=== PATIENT | male | born 1965 | race Caucasian/White ===

== ENCOUNTER 2019-10-13 08:00 | Inpatient (IN) | payer OTHER ==
[2019-10-07 10:37] VITALS: BMI 31.3
[~2019-10-13 08:00] MED LIST: CEFAZOLIN 2 GM in DEXTROSE 5%-WATER - 50 ML IVPB ONE; CELECOXIB 200 MG CAPSULE PO ONE; GABAPENTIN 300 MG CAPSULE PO ONE; PANTOPRAZOLE 40 MG TABLET PO ONE; TRANEXAMIC ACID 1000 MG/10 ML VIAL IVPUSH ONE; oxyCODONE HCL 10 MG SUSTAINED ACTING TABLET PO ONE
[2019-11-06] MEDS ORDERED: CELECOXIB 200 MG CAPSULE PO ONE (06:06)
[2019-11-06] MEDS ORDERED: oxyCODONE HCL 10 MG SUSTAINED ACTING TABLET PO ONE (06:06)
[2019-11-06] MEDS ORDERED: MIDAZOLAM HCL 2 MG/2 ML SINGLE DOSE VIAL ONE ×3 (06:40→09:22)
[2019-11-06] MEDS ORDERED: BUPIVACAINE LIPOSOME/PF (EXPAREL) 266 MG/20 ML VIAL ONE (06:40)
[2019-11-06] MEDS ORDERED: SODIUM CHLORIDE 0.9% P/F 10 ML VIAL IJ ONE (06:41)
[2019-11-06] MEDS ORDERED: VANCOMYCIN 1,000 MG VIAL (RESTRICTED TO ID ONLY) ONE (07:09)
[2019-11-06] MEDS ORDERED: ceFAZolin SODIUM 1 GM VIAL ONE ×2 (07:09→10:51)
--- NOTE | 2019-11-06 07:56 | HP ---
Admitting History and Physical - Admission Chief Complaint: Left knee osteoarthritis x years History of Present Illness: 54 year old male presents in regard to their left knee. Long-standing history of left knee osteoarthritis. Patient complains of pain, limited range of motion, difficulty ambulating, and difficulty with activities of daily living. Patient has failed conservative treatment options including PO medications, activity modification, injections, and exercise programs. Radiographs revealed severe osteoarthritis of the left knee joint. As patient has failed all conservative treatment measures, the patient chose to proceed with surgical intervention, left total knee arthroplasty MAKOplasty. History Source: Patient - Past Medical History Musculoskeletal: Yes: Osteoarthritis - Past Surgical History Additional Past Surgical History: See written history & physical. - Smoking History Smoking history: Former smoker Have you smoked in the past 12 months: No If you are a former smoker, when did you quit?: 25 YEARS AGO Home Medications - Allergies Allergies/Adverse Reactions: Allergies Allergy/AdvReac Type Severity Reaction Status Date / Time clindamycin Allergy Severe Hives Verified 10/22/19 11:26 - Home Medications Home Medications: Ambulatory Orders NK [No Known Home Medication] 10/07/19 Review of Systems - Review of Systems Musculoskeletal: reports: Crepitus (left knee), Decreased ROM (left knee), Joint Pain (left knee), Joint Swelling (left knee) Physical Examination Vital Signs: Vital Signs Temperature 98.1 F 11/06/19 06:38 Pulse Rate 70 11/06/19 06:38 Respiratory Rate 18 11/06/19 06:38 Blood Pressure 130/90 11/06/19 06:38 O2 Sat by Pulse Oximetry (%) 99 11/06/19 06:38 Constitutional: Yes: Well Nourished, No Distress Eyes: Yes: Conjunctiva Clear HENT: Yes: Atraumatic Neck: Yes: Supple Cardiovascular: Yes: Regular Rate and Rhythm Respiratory: Yes: Regular Gastrointestinal: Yes: Soft ...Rectal Exam: Yes: Deferred Musculoskeletal: Yes: Joint Stiffness (left knee), Joint Swelling (left knee), Other (Limited ROM) Assessment/Plan 54 year old male presents in regard to their left knee. Long-standing history of left knee osteoarthritis. Patient complains of pain, limited range of motion, difficulty ambulating, and difficulty with activities of daily living. Patient has failed conservative treatment options including PO medications, activity modification, injections, and exercise programs. Radiographs revealed severe osteoarthritis of the left knee joint. As patient has failed all conservative treatment measures, the patient chose to proceed with surgical intervention, left total knee arthroplasty MAKOplasty. Pros, cons, risks, benefits, and alternatives of a left total knee arthroplasty MAKOplasty were discussed with the patient at length. Patient confirms their understanding and consents to proceed with a left total knee arthroplasty MAKOplasty.
[2019-11-06] MEDS ORDERED: TRANEXAMIC ACID 1000 MG/10 ML VIAL IVPUSH ONE ×2 (08:00→10:33)
[2019-11-06] MEDS ORDERED: CEFAZOLIN 2 GM in DEXTROSE 5%-WATER - 50 ML IVPB ONE (08:00)
[2019-11-06] MEDS ORDERED: SUCCINYLCHOLINE CHLORIDE 200 MG/10 ML SYRINGE ONE (08:19)
[2019-11-06] MEDS ORDERED: PROPOFOL 20 ML ONE ×3 (08:19)
[2019-11-06] MEDS ORDERED: EPHEDRINE SULFATE/0.9% NACL/PF 50 MG/10 ML SYRINGE NR ONE (08:33)
[2019-11-06] MEDS ORDERED: BUPIVICAINE 0.25%/MORPH PF/KETOROLAC - 51ML DISP.SYRINGE IA ONE ×2 (09:30→10:54)
[2019-11-06] MEDS ORDERED: TRANEXAMIC ACID 1000 MG/10 ML VIAL ONE ×2 (10:24→10:50)
[2019-11-06] MEDS ORDERED: VANCOMYCIN 1,000 MG VIAL (RESTRICTED TO ID ONLY) IVPB ONE (10:34)
[2019-11-06] MEDS ORDERED: ONDANSETRON 4 MG/2 ML VIAL ONE (10:51)
[2019-11-06] MEDS ORDERED: KETOROLAC TROMETHAMINE 30 MG/1 ML VIAL ONE (10:51)
[2019-11-06] MEDS ORDERED: DEXAMETHASONE SOD PHOSPHATE 4 MG/1 ML VIAL ONE (10:51)
[2019-11-06] MEDS ORDERED: oxyCODONE HCL 5 MG TABLET PO PRN (11:27)
[2019-11-06] MEDS ORDERED: traMADol HCL 50 MG TABLET ONE (11:35)
[2019-11-06] MEDS ORDERED: ACETAMINOPHEN INJECTION 100 ML IVPB ONE (11:35)
[2019-11-06] MEDS ORDERED: ACETAMINOPHEN 1000 MG/100 ML VIAL (NON FORMULARY) IVPB ONE (11:42)
[2019-11-06] MEDS ORDERED: ONDANSETRON 4 MG/2 ML VIAL IVPUSH PRN (11:50)
[2019-11-06] MEDS ORDERED: MAG HYDROX/AL HYDROX/SIMETH 30 ML UNIT-DOSE CUP PO PRN (11:50)
[2019-11-06] MEDS ORDERED: MAGNESIUM HYDROX 2400MG/30ML ORAL SUSPENSION 30 ML CUP PO PRN (11:50)
[2019-11-06] MEDS: traMADol HCL 50 MG TABLET PO SCH ×3 (11:57→23:26)
--- NOTE | 2019-11-06 11:59 | OP ---
Operative Note - Note: Operative Date: 11/06/19 Pre-Operative Diagnosis: Left knee OA Operation: Left CASEY TKA Post-Operative Diagnosis: Same as Pre-op Surgeon: Randolph Jj Touch Up Painter: Charlene Yepez Anesthesia: Spinal Estimated Blood Loss (mls): 150
[2019-11-06] MEDS ORDERED: LACTATED RINGERS SOLUTION 1,000 ML IV SCH (12:00)
--- NOTE | 2019-11-06 15:36 | SPEC ---
DATE OF OPERATION: 11/06/2019 PREOPERATIVE DIAGNOSIS: Left knee osteoarthritis. POSTOPERATIVE DIAGNOSIS: Left knee osteoarthritis. PROCEDURE: Left total knee replacement with MAKOplasty robotic navigation. ATTENDING: Liz Donahue MD FORM PRESS OPERATOR: WILBERT Manuel ANESTHESIA: Spinal plus sedation. ESTIMATED BLOOD LOSS: 150 mL COMPLICATIONS: None. DISPOSITION: The patient was transferred to the PACU in stable condition. IMPLANTS USED: [place] Triathlon size 5 femoral and tibial cementless component; 32-mm patellar component; 9-mm polyethylene component. INDICATIONS: This is a 54-year-old male who presented to the office complaining of left knee pain. He is a longstanding patient of the practice and was initially seen after a workplace injury which resulted in arthroscopic surgery in his left knee. Over the years he went on to develop arthritis of the knee. He was seen and examined by Dr. Donahue and radiographs revealed grade 4 osteoarthritis of the knee. The patient was treated conservatively with injections, medications, and physical therapy, but continued to have severe pain and ambulatory dysfunction. He was therefore indicated for a left total knee replacement. The risks, benefits and alternatives to the procedure were explained to the patient in great detail and he elected to proceed with the surgery. DESCRIPTION OF THE PROCEDURE: On the day of surgery, the patient was taken to the operating room and placed on the OR table. Spinal anesthesia was administered by the anesthesiologist. The patient was then positioned supine on the table and all bony prominences were padded. The knee was then prepped and draped in the usual sterile fashion and intravenous antibiotics were given for infection prophylaxis. A surgical time-out was then performed with the team, and the patients identity, procedure, side, availability of implants, and the administration of antibiotics was confirmed. With the knee flexed, a midline incision was made and carried down through the subcutaneous fat to the underlying retinaculum. A medial parapatellar arthrotomy was performed. This was followed by a subperiosteal dissection of the tissue off the proximal, medial tibia. A portion of fat pad was removed from under the patellar tendon, and a small portion of fat was excised off the distal supracondylar femur. Electrocautery and an [employer] bipolar sealing device were used to achieve hemostasis. The knee was then flexed further and the anterior horn of the lateral meniscus was released from the midline. Next, the anterior and posterior cruciate ligaments were transected. Grade 4 changes were noted diffusely throughout the knee. Femoral and tibial checkpoints were then placed in the appropriate location using a mallet. Two parallel bicortical self-drilling pins were placed in the tibial diaphysis after making stab incisions and bluntly dissecting down to bone. Two pins were then placed in the distal supracondylar femur. The [employer] navigation arrays were then attached to both the femoral and tibial pins and the lower extremity was then registered to the robotic navigation device using various joint movements, as well as inputting several dozen reference points. The knee was then taken through a full range of motion with a corrective force applied. Alignment in varus/valgus as well as flexion/extension and soft tissue balance was measured in various positions. The navigation device showed a numerical and graphic representation of the soft tissue balance. The components were repositioned virtually using the software until optimal soft tissue balance was achieved on screen. Once this was accomplished, the final plan was saved and sent to the robot. Self-retaining retractors were then placed at the joint line for exposure and protection of the collateral ligaments. The robot was brought into the sterile field and registered with the navigation device. The robotic arm with attached oscillating saw blade was then used to perform femoral and tibial bone cuts as per the saved software plan. The femoral box cut was made using the appropriately sized manual cutting guide. The knee was then irrigated. Trial components were placed and the knee was taken through a full range of motion to assess soft tissue balance and alignment. The range of motion was found to be excellent and the soft tissue balance was optimal and according to plan. The knee was then put into extension and the patella everted. The synovium around the patella was circumscribed with electrocautery. A caliper was used to measure the patellar thickness and a saw was then used to resect the patella at the chondro-osseous junction. The cut surface was then sized and drilled for the appropriate patellar button, with care taken to medialize it. A trial patella was then placed and the knee was again taken through a full range of motion. The knee was found to have both good balance and good patellar tracking. All of the components were removed except the tibial base plate. The appropriate instrumentation was used to drill and punch the proximal tibia for the keel of the final component. All bony surfaces were then cleaned with pulsatile lavage and dried. Cementless [employer] Triathlon knee replacement components were then impacted in place and found to have a stable press-fit. A trial polyethylene component was placed and the knee was again taken through a full range of motion to assess stability, balance, and patellar tracking. This was found to be optimal and the trial polyethylene was exchanged for the appropriately sized real implant. The wound was then thoroughly irrigated with normal saline. A 3-minute dilute Betadine lavage was performed. The knee was again irrigated using a pulsatile lavage device. A periarticular injection was used to locally infiltrate the capsular tissues surrounding the implant and prosthesis. Then No. 1 Polysorb and 0 VLoc 180 barbed sutures were used to close the arthrotomy. Then No. 1 Polysorb and 2-0 VLoc 90 sutures were used in the subcutaneous tissues. Then 4-0 undyed Vicryl and Dermabond skin adhesive was used to close the stab incisions made for the navigation pins. The skin was closed using both 3-0 VLoc 90 suture in a running subcuticular fashion and Dermabond skin adhesive. Once this was completed a sterile Aquacel dressing and compressive Michael-wrap was applied. The patient was then awakened and taken to the PACU in stable condition. LIZ DONAHUE M.D. [id number]
[2019-11-06] MEDS: ACETAMINOPHEN 325 MG TABLET (FP) PO SCH ×2 (17:06→23:26)
[2019-11-06] MEDS: CEFAZOLIN 2 GM/D5W 2 GM/50 ML ML IVPB SCH (17:10)
[2019-11-06] MEDS: KETOROLAC TROMETHAMINE 30 MG/1 ML VIAL IVPUSH SCH ×2 (17:10→23:25)
[2019-11-06] MEDS: oxyCODONE HCL 5 MG TABLET PO PRN (18:21)
[2019-11-06] MEDS ORDERED: DEXAMETHASONE SOD PHOSPHATE 10 MG/1 ML VIAL IVPB ONE (20:00)
[2019-11-06] MEDS: CELECOXIB 200 MG CAPSULE PO SCH (21:38)
[2019-11-06] MEDS: oxyCODONE HCL 10 MG SUSTAINED ACTING TABLET PO SCH (21:38)
[2019-11-06] MEDS: ASCORBIC ACID 500 MG TABLET (FP) PO SCH (21:39)
[2019-11-06] MEDS: SENNOSIDES/DOCUSATE COMBO (SENNA PLUS) TABLET (UD) PO SCH (21:39)
[2019-11-06] MEDS: GABAPENTIN 300 MG CAPSULE PO SCH (21:39)
[2019-11-07] MEDS: CEFAZOLIN 2 GM/D5W 2 GM/50 ML ML IVPB SCH (01:13)
[2019-11-07] MEDS: KETOROLAC TROMETHAMINE 30 MG/1 ML VIAL IVPUSH SCH ×2 (05:50→12:00)
[2019-11-07] MEDS: ACETAMINOPHEN 325 MG TABLET (FP) PO SCH ×4 (05:50→23:22)
[2019-11-07] MEDS: traMADol HCL 50 MG TABLET PO SCH ×4 (05:51→23:23)
[2019-11-07 08:10] LABS: CALCIUM 8.6 mg/dl (8.5-10); CREATININE 0.9 mg/dl (0.55-1.3); HEMATOCRIT 37.4 % (35.4-49); HEMOGLOBIN 12.3 GM/dl (11.7-16.9); MCH 31.3 pg (25.7-33.7); MCHC 32.9 g/dl (32.0-35.9); MEAN PLT VOLUME 9.6 fl (7.5-11.1); PLATELET COUNT 186 K/MM3 (134-434); POTASSIUM 5.2 mmol/L (3.5-5.1); RBC 3.94 M/mm3 (4.00-5.60); RDW 11.8 % (11.9-15.9); WHITE BLOOD COUNT 12.6 K/mm3 (4.0-10.8)
[2019-11-07] MEDS: ASPIRIN 325 MG TABLET PO SCH (08:57)
[2019-11-07] MEDS: oxyCODONE HCL 10 MG SUSTAINED ACTING TABLET PO SCH ×2 (09:01→21:11)
[2019-11-07] MEDS: PANTOPRAZOLE 40 MG TABLET PO SCH (09:01)
[2019-11-07] MEDS: CELECOXIB 200 MG CAPSULE PO SCH ×2 (09:01→21:11)
[2019-11-07] MEDS: SENNOSIDES/DOCUSATE COMBO (SENNA PLUS) TABLET (UD) PO SCH ×2 (09:01→21:11)
[2019-11-07] MEDS: GABAPENTIN 300 MG CAPSULE PO SCH ×2 (09:01→21:11)
[2019-11-07] MEDS: MULTIVITAMINS (DAILY MVI) TABLET (FP) PO SCH (09:01)
[2019-11-07] MEDS: ASCORBIC ACID 500 MG TABLET (FP) PO SCH ×2 (09:01→21:11)
--- NOTE | 2019-11-07 13:07 | PN ---
Progress Note (short form) - Note Progress Note: S: Pt sitting in a chair without complaints O: VAS 3/10 A/P: POD #1 s/p left total knee replacement 1. Pain well controlled. Continue meds as ordered
[2019-11-07] MEDS: oxyCODONE HCL 5 MG TABLET PO PRN (16:37)
--- NOTE | 2019-11-07 23:28 | PN ---
Progress Note (short form) - Note Progress Note: Pt seen and examined. Doing well. AVSS Selected Entries 11/07/19 11/07/19 19:21 22:45 Temperature 97.8 F 97.5 F L Pulse Rate 60 Blood Pressure 124/66 109/67 O2 Sat by Pulse 98 96 Oximetry (%) Laboratory Tests 11/07/19 11/07/19 07:09 07:09 WBC 12.6 H Hgb 12.3 Hct 37.4 Plt Count 186 Sodium 135 L Potassium 5.2 H Chloride 101 Carbon Dioxide 28 Anion Gap 6 L BUN 14.0 Creatinine 0.9 Est GFR (CKD-EPI)AfAm 111.05 Est GFR (CKD-EPI)NonAf 95.81 Random Glucose 164 H Calcium 8.6 Gen: NAD LLE: c/d/i, NVID A/P POD#1 s/p L CASEY TKA PT/OOB D/C home in AM
[2019-11-08] MEDS: ACETAMINOPHEN 325 MG TABLET (FP) PO SCH ×2 (06:38→12:00)
[2019-11-08] MEDS: traMADol HCL 50 MG TABLET PO SCH ×2 (06:38→15:52)
[2019-11-08 06:54] VITALS: BP 114/61; PULSE 58; TEMP 97.8
[2019-11-08 08:14] LABS: HEMOGLOBIN 11.5 GM/dl (11.7-16.9); MCH 30.9 pg (25.7-33.7); MCHC 32.8 g/dl (32.0-35.9); MEAN CELL VOLUME 94.2 fl (80-96); MEAN PLT VOLUME 9.4 fl (7.5-11.1); PLATELET COUNT 174 K/MM3 (134-434); RBC 3.72 M/mm3 (4.00-5.60); WHITE BLOOD COUNT 8.4 K/mm3 (4.0-10.8)
[2019-11-08] MEDS: ASPIRIN 325 MG TABLET PO SCH (09:22)
[2019-11-08] MEDS: oxyCODONE HCL 10 MG SUSTAINED ACTING TABLET PO SCH (09:22)
[2019-11-08] MEDS: GABAPENTIN 300 MG CAPSULE PO SCH (09:22)
[2019-11-08] MEDS: CELECOXIB 200 MG CAPSULE PO SCH (09:22)
[2019-11-08] MEDS: PANTOPRAZOLE 40 MG TABLET PO SCH (09:23)
[2019-11-08] MEDS: ASCORBIC ACID 500 MG TABLET (FP) PO SCH (09:23)
[2019-11-08] MEDS: SENNOSIDES/DOCUSATE COMBO (SENNA PLUS) TABLET (UD) PO SCH (09:23)
[2019-11-08] MEDS: MULTIVITAMINS (DAILY MVI) TABLET (FP) PO SCH (09:23)
--- NOTE | 2019-11-11 15:16 | PATH ---
Surgical Pathology Report Patient Name: PRANAY HER Med. Rec. #: [id number] /Age/Gender: 1965 (Age: 54) / M Account: [id number] Location: [facility] MED-SURG Taken: 11/06/2019 Received: 11/06/2019 Reported: 11/11/2019 Physicians: Randolph Jj M.D. Specimen(s) Received LEFT KNEE BONES Clinical History Left knee osteoarthritis Final Diagnosis LEFT KNEE BONES, RESECTION: DEGENERATIVE JOINT DISEASE, LEFT KNEE. Electronically Signed Kalin Scott M.D. Gross Description Received in formalin labeled "left knee bones," is an 11.5 x 9.0 x 2.0 cm aggregate of multiple jin-brown, irregular portions of bone and soft tissue. The tibial plateau measures 7.5 x 5.8 x 1.5 cm. There is a 1.3 cm greatest dimension area of eburnation present. The remaining articular surfaces are jin-yellow and focally granular. The underlying trabecular bone is yellow and hard. The [employer] sections are submitted in one cassette, following decalcification. 11/07/[address] [facility]
== END 2019-11-08 15:00 | disposition home health service (06) | DRG 302 ==
LOC: MERGE 08:00 → FM/S 11-06 05:50
PROVIDERS: ADMIT Student in an Organized Health Care Education/Training Program; ATTEND Student in an Organized Health Care Education/Training Program
PROC: 8E0Y0CZ Robotic Assisted Procedure of Lower Extremity, Open Approach (ICD-10-PCS; 2019-11-06)
PROC: 0SRD0JZ Replacement of Left Knee Joint with Synthetic Substitute, Open Approach (ICD-10-PCS; principal; 2019-11-06 09:03)
DX: M17.12 Unilateral primary osteoarthritis, left knee (principal)
CPT/HCPCS: 36415; 73560-TC-LT-FY; 80048; 85027; 88304-TC; 88311-TC; 94760; 97010-GP; 97116-GP; 97163-GP; J0131; J1100